=== PATIENT | male | born 1980 | race Hispanic/Latino ===

== ENCOUNTER 2017-11-13 22:00 | Observation (INO) | payer SELFPAY ==
[2017-11-13] MEDS ORDERED: NA CHLORIDE 0.9% 1,000 ML ONE (22:44)
[2017-11-13] MEDS ORDERED: PROMETHAZINE 25 MG/ML VIAL ONE (22:44)
[2017-11-13] MEDS ORDERED: FENTANYL CITR 100 MCG/2 ML ONE (22:44)
[2017-11-13 22:55] LABS: Absolute Lymphocytes (CBC) 1.9 K/uL (0.7-4.9); Absolute Monocytes 0.9 K/uL (0.1-1.3); Absolute Neutrophil 8.3 K/uL (1.8-8.0); Basophils % 0.4 % (0-1.3); Eosinophils % 0.7 % (0-4.4); Hematocrit 44.6 % (39.6-49.0); Lymphocytes % 17.1 % (15.3-44.8); MCH 32.6 pg (27.0-35.0); MCV 94.3 fL (80-100); MPV 7.4 fL (7.6-11.3); Monocytes % 8.1 % (3.3-12.3); RBC Red Blood Cell Count 4.73 M/uL (4.33-5.43)
[2017-11-13 23:12] LABS: ALT/SGPT 35 U/L (12-78); AST/SGOT 19 U/L (15-37); Albumin 4.1 g/dL (3.4-5.0); Alkaline Phosphatase 76 U/L (45-117); Amylase Level 69 U/L (25-115); BUN Blood Urea Nitrogen 10 mg/dL (7-18); Bicarbonate 32 mmol/L (21-32); Bilirubin Direct 0.1 mg/dL (0-0.2); Bilirubin Total 0.4 mg/dL (0.2-1.0); Glucose Level 113 mg/dL (74-106); Lipase 277 U/L (73-393); Potassium 3.7 mmol/L (3.5-5.1); Protein, Total 8.2 g/dL (6.4-8.2); Sodium Level 139 mmol/L (136-145)
--- NOTE | 2017-11-13 23:19 | RAD REPORT ---
EXAM DESCRIPTION: US - Abdomen Exam Limited - 11/13/2017 10:59 pm CLINICAL HISTORY: ABD PAIN COMPARISON: No comparisons FINDINGS: The gallbladder demonstrates shadowing gallstone in the region of the gallbladder neck. Th e gallbladder appears mildly distended. No pericholecystic fluid or gallbladder wall thickening. The common bile duct is normal measuring 6 mm. The liver demonstrates no findings of intrahepatic biliary dilatation. IMPRESSION: Cholelithiasis. If cholecystitis remains a clinical concern, follow-up HIDA scan would be of value.
--- NOTE | 2017-11-13 23:24 | ER ---
Nurse's Notes [facility] Name: Jose Hernandez Age: 37 yrs Sex: Male : 1980 Arrival Date: 11/13/2017 Time: 22:01 Bed 15 Private MD: Diagnosis: Cholelithiasis;Vomiting-intractable Presentation: 11/13 22:00 Presenting complaint: Patient states: he has been having sharp epigastric pain that ea radiates to back since 2 PM today, reports he has been having nausea and vomiting. Transition of care: patient was not received from another setting of care. Onset of symptoms was November 13, 2017. Risk Assessment: Do you want to hurt yourself or someone else? Patient reports no desire to harm self or others. Initial Sepsis Screen: Does the patient meet any 2 criteria? No. Patient's initial sepsis screen is negative. Does the patient have a suspected source of infection? No. Patient's initial sepsis screen is negative. Care prior to arrival: None. 22:00 Method Of Arrival: Ambulatory ea 22:00 Acuity: MACARIO 3 ea Triage Assessment: 22:00 General: Appears uncomfortable, Behavior is calm, cooperative, appropriate for age. ea Pain: Complains of pain in epigastric area Pain radiates to lumbar area Pain currently is 4 out of 10 on a pain scale. Quality of pain is described as aching, Pain began 4 hours ago. Is continuous. Neuro: Level of Consciousness is awake, alert, obeys commands, Oriented to person, place, time, situation. Cardiovascular: Heart tones S1 S2 present Patient's skin is warm and dry. Respiratory: Airway is patent Respiratory effort is even, unlabored, Respiratory pattern is regular, symmetrical. GI: Abdomen is non-distended, Bowel sounds present X 4 quads. Derm: Skin is pink, warm \T\ dry. Musculoskeletal: Circulation, motion, and sensation intact. Historical: - Allergies: 22:21 No Known Allergies; ea - Home Meds: 22:21 None [Active]; ea - PMHx: 22:21 None; ea - PSHx: 22:21 None; ea - Immunization history:: Adult Immunizations up to date. - Social history:: Smoking status: Patient/guardian denies using tobacco. - Ebola Screening: : No symptoms or risks identified at this time. Screenin:24 Abuse screen: Denies threats or abuse. Nutritional screening: No deficits noted. ea Tuberculosis screening: No symptoms or risk factors identified. Fall Risk None identified. Assessment: 22:30 General: Appears in no apparent distress. uncomfortable, Behavior is calm, cooperative, aa1 appropriate for age. Pain: Complains of pain in epigastric area Pain radiates to back Pain began suddenly, Is continuous. Neuro: Level of Consciousness is awake, alert, obeys commands, Oriented to person, place, time, situation, Moves all extremities. Full function Gait is steady. Cardiovascular: Denies chest pain, palpitations, shortness of breath. Respiratory: Airway is patent Respiratory effort is even, unlabored, Respiratory pattern is regular, symmetrical. GI: Abdomen is non-distended, Abd is soft X 4 quads Abdomen is tender to palpation in right upper quadrant and epigastric area Reports upper abdominal pain, epigastric pain, nausea, vomiting. : No signs and/or symptoms were reported regarding the genitourinary system. EENT: No signs and/or symptoms were reported regarding the EENT system. Derm: Skin is intact, is healthy with good turgor, Skin is pink, warm \T\ dry. Musculoskeletal: Circulation, motion, and sensation intact. Capillary refill < 3 seconds. 11/14 00:28 Reassessment: Patient appears in no apparent distress at this time. Patient and/or aa1 family updated on plan of care and expected duration. Pain level reassessed. Patient is alert, oriented x 3, equal unlabored respirations, skin warm/dry/pink. Awaiting bed assignment Patient states feeling better. 01:27 Reassessment: Patient appears in no apparent distress at this time. Patient is alert, aa1 oriented x 3, equal unlabored respirations, skin warm/dry/pink. Report given to Wendi on 2nd floor. Vital Signs: 11/13 22:10 BP 136 / 94; Pulse 87; Resp 18; Temp 98.6; Pulse Ox 98% on R/A; Weight 88.45 kg; Height ea 5 ft. 6 in. (167.64 cm); Pain 5/10; 11/14 00:27 BP 98 / 64; Pulse 75; Resp 18; Pulse Ox 100% ; Pain 0/10; ea 01:20 BP 114 / 86; Pulse 79; Resp 16; Pulse Ox 100% on R/A; Pain 0/10; aa1 11/13 22:10 Body Mass Index 31.47 (88.45 kg, 167.64 cm) ea ED Course: 11/13 22:01 Patient arrived in ED. am2 22:05 Arm band placed on right wrist. Patient placed in an exam room, on a stretcher, on ea pulse oximetry. 22:08 [facility] snw 22:08 Surya Smalls MD is Attending Physician. snw 22:20 Triage completed. ea 22:25 Patient has correct armband on for positive identification. Bed in low position. Call ea light in reach. 22:40 Initial lab(s) drawn, by ED staff, sent to lab. Urine collected: clean catch specimen. aa1 Inserted saline lock: 20 gauge in right antecubital area, using aseptic technique. Blood collected. by Jacey Solares RN. 22:58 Ultrasound completed. Patient tolerated well. sg3 22:58 Notified SHOE COVERER/JANELLE uriarte with us prelim. sg3 22:59 US Abdomen Limited In Process Unspecified. EDMS 23:19 Lidia Martin, DANGELO is Primary Nurse. aa1 23:23 Nick Dee MD is Hospitalizing Provider. snw 11/14 00:28 Warm blanket given. aa1 01:20 No provider procedures requiring assistance completed. Patient admitted, IV remains in aa1 place. Administered Medications: 11/13 22:50 Drug: NS 0.9% 1000 ml Route: IV; Rate: 1 bolus; Site: right antecubital; aa1 11/14 00:32 Follow up: IV Status: Completed infusion aa1 11/13 22:50 Drug: fentaNYL (PF) 50 mcg Route: IVP; Site: right antecubital; aa1 23:29 Follow up: Response: No adverse reaction; Pain is decreased aa1 22:50 Drug: Phenergan 25 mg Route: IVP; Site: right antecubital; aa1 23:29 Follow up: Response: No adverse reaction; Nausea is decreased aa1 23:29 Drug: Mefoxin 1 grams Route: IVPB; Infused Over: 30 mins; Site: right antecubital; aa1 11/14 00:00 Follow up: IV Status: Completed infusion aa1 Outcome: 11/13 23:23 Decision to Hospitalize by Provider. snw 11/14 01:27 Admitted to Med/surg accompanied by nurse, family with patient, via wheelchair, room aa1 207, with chart, Report called to Wendi Condition: stable Instructed on the need for admit, Demonstrated understanding of instructions. 01:28 Patient left the ED. aa1 Signatures: Dispatcher [employer] EDMS Lidia Martin RN RN aa1 Jessica Maldonado, SHOT BAGGER-C SHOT BAGGER-Csnw Wendy Bueno am2 Jacey Solares RN Cristina Rincon ea 3 Corrections: (The following items were deleted from the chart) 00:30 00:27 BP 98 / 64; Pulse 18bpm; Resp 75bpm; Pulse Ox 100%; ea ea
--- NOTE | 2017-11-13 23:24 | EDPHYS ---
Physician Documentation [facility] Name: Jose Hernandez Age: 37 yrs Sex: Male : 1980 Arrival Date: 11/13/2017 Time: 22:01 Bed 15 Private MD: ED Physician Surya Smalls HPI: 11/13 23:17 This 37 yrs old Male presents to ER via Ambulatory with complaints of snw Epigastric Pain, Back Pain, Vomiting. 23:17 The patient presents with abdominal pain in the epigastric area, in the right upper snw quadrant. Onset: The symptoms/episode began/occurred suddenly, today, and became worse and became persistent. The symptoms radiate to right back. Associated signs and symptoms: Pertinent positives: nausea and vomiting. The symptoms are described as sharp, steady. Severity of pain: At its worst the pain was moderate severe. The patient has not experienced similar symptoms in the past. The patient has not recently seen a physician. Historical: - Allergies: 22:21 No Known Allergies; ea - Home Meds: 22:21 None [Active]; ea - PMHx: 22:21 None; ea - PSHx: 22:21 None; ea - Immunization history:: Adult Immunizations up to date. - Social history:: Smoking status: Patient/guardian denies using tobacco. - Ebola Screening: : No symptoms or risks identified at this time. ROS: 22:30 Constitutional: Negative for fever, chills, and weight loss, Eyes: Negative for injury, snw pain, redness, and discharge, ENT: Negative for injury, pain, and discharge, Neck: Negative for injury, pain, and swelling, Cardiovascular: Negative for chest pain, palpitations, and edema, Respiratory: Negative for shortness of breath, cough, wheezing, and pleuritic chest pain, Back: Negative for injury and pain, : Negative for injury, bleeding, discharge, and swelling, MS/Extremity: Negative for injury and deformity, Skin: Negative for injury, rash, and discoloration, Neuro: Negative for headache, weakness, numbness, tingling, and seizure. 22:30 Abdomen/GI: Positive for abdominal pain, nausea and vomiting, anorexia. Exam: 22:29 Constitutional: This is a well developed, well nourished patient who is awake, alert, snw and in no acute distress. Head/Face: Normocephalic, atraumatic. Eyes: Pupils equal round and reactive to light, extra-ocular motions intact. Lids and lashes normal. Conjunctiva and sclera are non-icteric and not injected. Cornea within normal limits. Periorbital areas with no swelling, redness, or edema. ENT: Nares patent. No nasal discharge, no septal abnormalities noted. Tympanic membranes are normal and external auditory canals are clear. Oropharynx with no redness, swelling, or masses, exudates, or evidence of obstruction, uvula midline. Mucous membranes moist. Neck: Trachea midline, no thyromegaly or masses palpated, and no cervical lymphadenopathy. Supple, full range of motion without nuchal rigidity, or vertebral point tenderness. No Meningismus. Chest/axilla: Normal chest wall appearance and motion. Nontender with no deformity. No lesions are appreciated. Cardiovascular: Regular rate and rhythm with a normal S1 and S2. No gallops, murmurs, or rubs. Normal PMI, no JVD. No pulse deficits. Respiratory: Lungs have equal breath sounds bilaterally, clear to auscultation and percussion. No rales, rhonchi or wheezes noted. No increased work of breathing, no retractions or nasal flaring. Back: No spinal tenderness. No costovertebral tenderness. Full range of motion. Skin: Warm, dry with normal turgor. Normal color with no rashes, no lesions, and no evidence of cellulitis. MS/ Extremity: Pulses equal, no cyanosis. Neurovascular intact. Full, normal range of motion. Neuro: Awake and alert, GCS 15, oriented to person, place, time, and situation. Cranial nerves II-XII grossly intact. Motor strength 5/5 in all extremities. Sensory grossly intact. Cerebellar exam normal. Normal gait. 22:29 Abdomen/GI: Inspection: abdomen appears normal, Bowel sounds: normal, Palpation: moderate abdominal tenderness, in the epigastric area and right upper quadrant, Indicators: McBurney's point is not tender, Valdes's sign is negative. Vital Signs: 22:10 BP 136 / 94; Pulse 87; Resp 18; Temp 98.6; Pulse Ox 98% on R/A; Weight 88.45 kg; Height ea 5 ft. 6 in. (167.64 cm); Pain 5/10; 08 00:27 BP 98 / 64; Pulse 75; Resp 18; Pulse Ox 100% ; Pain 0/10; ea 01:20 BP 114 / 86; Pulse 79; Resp 16; Pulse Ox 100% on R/A; Pain 0/10; aa1 11/13 22:10 Body Mass Index 31.47 (88.45 kg, 167.64 cm) ea MDM: 11/13 22:08 Patient medically screened. snw 23:15 Physician consultation: Surya Smalls MD would like admission per Dr. Nick Dee MD snw discussed case with Dr. Smalls. 23:19 Data reviewed: vital signs, nurses notes. Data interpreted: Pulse oximetry: on room air snw is 98 %. Interpretation: normal. Counseling: I had a detailed discussion with the patient and/or guardian regarding: the historical points, exam findings, and any diagnostic results supporting the discharge/admit diagnosis, the presence of at least one elevated blood pressure reading (>120/80) during this emergency department visit, lab results, radiology results, the need for further work-up and treatment in the hospital. Physician consultation: Nick Dee MD was called at 23:21, was contacted at 23:21, regarding admission, to the medical/surgical unit. would like medications started, Mefoxin 1gm q 8h, NPO. 11/13 22:23 Order name: Basic Metabolic Panel; Complete Time: 23:12 snw 11/13 22:23 Order name: CBC with Diff; Complete Time: 23:02 snw 11/13 22:23 Order name: Creatinine for Radiology; Complete Time: 23:12 snw 11/13 22:23 Order name: Hepatic Function; Complete Time: 23:12 snw 11/13 22:23 Order name: Lipase; Complete Time: 23:12 snw 11/13 22:23 Order name: Urine Microscopic Only; Complete Time: 23:33 snw 11/13 22:23 Order name: US Abdomen Limited; Complete Time: 23:22 snw 11/13 22:23 Order name: Amylase Level; Complete Time: 23:12 EDMS 11/13 23:13 Order name: Urine Dipstick--Ancillary (enter results); Complete Time: 23:33 rg2 11/13 22:23 Order name: IV Saline Lock; Complete Time: 23:20 snw 11/13 22:23 Order name: Labs collected and sent; Complete Time: 23:20 snw 11/13 22:23 Order name: Urine Dipstick-Ancillary (obtain specimen); Complete Time: 23:20 snw 11/13 23:22 Order name: NPO; Complete Time: 23:28 snw Administered Medications: 22:50 Drug: NS 0.9% 1000 ml Route: IV; Rate: 1 bolus; Site: right antecubital; aa1 11/14 00:32 Follow up: IV Status: Completed infusion aa1 11/13 22:50 Drug: fentaNYL (PF) 50 mcg Route: IVP; Site: right antecubital; aa1 23:29 Follow up: Response: No adverse reaction; Pain is decreased aa1 22:50 Drug: Phenergan 25 mg Route: IVP; Site: right antecubital; aa1 23:29 Follow up: Response: No adverse reaction; Nausea is decreased aa1 23:29 Drug: Mefoxin 1 grams Route: IVPB; Infused Over: 30 mins; Site: right antecubital; aa1 11/14 00:00 Follow up: IV Status: Completed infusion aa1 Disposition: 03:36 Co-signature as Attending Physician, Surya Smalls MD. pkale Disposition: 11/13/17 23:23 Hospitalization ordered by Nick Dee for Observation. Preliminary diagnosis are Cholelithiasis, Vomiting - intractable. - Bed requested for Telemetry/MedSurg (observation). - Status is Observation. aa1 - Condition is Stable. - Problem is new. - Symptoms are unchanged. UTI on Admission? No Signatures: Dispatcher [employer] EDNE Efraín Nagy rg2 Lidia Martin RN RN aa1 Surya Smalls MD MD pkl Jessica Maldonado, PRESSURE TANK OPERATOR-C PRESSURE TANK OPERATOR-Csnw Jacey Solares RN RN caesar Corrections: (The following items were deleted from the chart) 11/13 23:23 Hospitalization Ordered by Nick Dee MD for Observation. Preliminary rg2 diagnosis is Cholelithiasis; Vomiting - intractable. Bed requested for Telemetry/MedSurg (observation). Status is Observation. Condition is Stable. Problem is new. Symptoms are unchanged. UTI on Admission? No. snw 11/14 01:28 01:07 11/13/2017 23:23 Hospitalization Ordered by Nick Dee MD for Observation. aa1 Preliminary diagnosis is Cholelithiasis; Vomiting - intractable. Bed requested for Telemetry/MedSurg (observation). Status is Observation. Condition is Stable. Problem is new. Symptoms are unchanged. UTI on Admission? No. rg2
[2017-11-13 23:28] LABS: Urine Culture Reflex Order NOT NEEDED
[2017-11-13] MEDS ORDERED: CEFOXITIN/SWI 1gm 1 GM/10 ML SYR ONE (23:28)
[2017-11-13 23:29] LABS: Urine Bacteria <20 /HPF (NONE SEEN); Urine RBC <5 /HPF (NONE SEEN)
[2017-11-13 23:29] LABS: Urine Blood TRACE (NEG); Urine Glucose NEGATIVE (NEG); Urine Protein NEGATIVE (NEG); Urine Specific Gravity 1.015 (1.005-1.030); Urine pH 8.5 (5.0-7.0)
[2017-11-14] MEDS ORDERED: ONDANSETRON 4 MG/2 ML VIAL IV PRN ×2 (01:22→16:40)
[2017-11-14] MEDS ORDERED: MORPHINE 4 MG/ML SYR IV PRN (01:22)
[2017-11-14] MEDS ORDERED: CEFOXITIN 1 GM in NA CHLORIDE 0.9% 100 ML IVPB SCH ×2 (01:22→09:00)
[2017-11-14] MEDS: D5 0.45 NS 1,000 ML IV SCH ×3 (01:54→17:08)
[2017-11-14 02:01] VITALS: BMI 31.8
[2017-11-14 05:05] LABS: Absolute Lymphocytes (CBC) 2.7 K/uL (0.7-4.9); Absolute Monocytes 0.8 K/uL (0.1-1.3); Absolute Neutrophil 5.3 K/uL (1.8-8.0); Basophils % 0.4 % (0-1.3); Eosinophils % 1.3 % (0-4.4); Hematocrit 39.7 % (39.6-49.0); Lymphocytes % 30.2 % (15.3-44.8); MCH 33.5 pg (27.0-35.0); MCV 94.2 fL (80-100); MPV 7.4 fL (7.6-11.3); Monocytes % 8.9 % (3.3-12.3); RBC Red Blood Cell Count 4.21 M/uL (4.33-5.43)
[2017-11-14 05:39] LABS: ALT/SGPT 28 U/L (12-78); AST/SGOT 14 U/L (15-37); Albumin 3.2 g/dL (3.4-5.0); Alkaline Phosphatase 52 U/L (45-117); BUN Blood Urea Nitrogen 8 mg/dL (7-18); Bicarbonate 28 mmol/L (21-32); Bilirubin Direct < 0.1 mg/dL (0-0.2); Bilirubin Total 0.5 mg/dL (0.2-1.0); Glucose Level 117 mg/dL (74-106); Lipase 159 U/L (73-393); Potassium 3.9 mmol/L (3.5-5.1); Protein, Total 6.7 g/dL (6.4-8.2); Sodium Level 142 mmol/L (136-145)
[2017-11-14] MEDS: CEFOXITIN/SWI 1gm 1 GM/10 ML SYR IV SCH ×2 (09:27→17:08)
[2017-11-14] MEDS ORDERED: MIDAZOLAM HCL 2 MG/2 ML INJ ONE (13:55)
[2017-11-14] MEDS ORDERED: LIDOCAINE 2% MPF 5 ML VIAL ONE (13:55)
[2017-11-14] MEDS ORDERED: PROPOFOL 200 MG/20 ML VIAL IV ONE (13:55)
[2017-11-14] MEDS ORDERED: FENTANYL CITR 250 MCG/5 ML ONE (13:55)
[2017-11-14] MEDS ORDERED: ROCURONIUM 50 MG/5 ML VIAL IV ONE (13:56)
[2017-11-14] MEDS ORDERED: ONDANSETRON HCL 40 MG/20 ML VIAL ONE (13:57)
[2017-11-14] MEDS ORDERED: Ringers Lactate 1,000 ML IV ONE ×2 (14:17→16:06)
[2017-11-14] MEDS ORDERED: GLYCOPYRROLATE 0.2 MG/ML SYR ONE (16:00)
[2017-11-14] MEDS ORDERED: NEOSTIGMINE 1 MG/ML -5 ML SYRINGE ONE (16:01)
[2017-11-14] MEDS: MEPERIDINE HCL 50 MG/ML AMP ONE ×3 (16:25→16:39)
--- NOTE | 2017-11-14 16:40 | P.OP ---
Preoperative diagnosis: Acute on chronic cholecystitis with cholelithiasis Postoperative diagnosis: The same Primary procedure: Laparoscopic cholecystectomy Secondary procedure: Cholangiogram Anesthesia: General Estimated blood loss: Less than 20 cc Specimen: In gallbladder and contents Findings: Chronically inflamed gallbladder Operative Technique: The patient brought the operating room and placed supine on the table. After the induction of adequate general endotracheal anesthesia, the area of the abdomen was prepped with a DuraPrep solution, and he was draped in usual aseptic manner. A subumbilical incision was made. This brought down through the skin and subcutaneous tissue. The Visiport was used into the peritoneal cavity and created pneumoperitoneum to approximately 12 mm of mercury. Under direct vision a 5 mm trocar was placed in the upper midline, and 2 5s on the right and. With the patient placed in reverse Trendelenburg and rolled to the left, we were able to visualize right upper quadrant. We could see a chronically inflamed gallbladder in the right upper quadrant. Just at the inferior edge at the horizon of the fundus of the gallbladder. There were omental adhesions to this area. These were grasped and attempts made to gently take him off the serosal surface. This was remarkably fibrous tissue that was adherent in this area almost with the consistency of cheese cloth. This completely involved the whole gallbladder. This was dissected off the serosal surface for finally able to expose Vicki's pouch. In this area there is a tremendous amount of thickening of the gallbladder wall and we could see that there was stone was visible for sleeve underneath a mucosal surface. Because the amount of adhesions and the dense did then we did an intraoperative cholangiogram to an opening made just above Vicki's pouch. This allowed us to demonstrate the cystic duct. We could see the cystic duct at its confluence with the common hepatic duct. There were no filling defects noted distally. The catheter was now removed was identified. Clips were placed across it to secure it. The gallbladder was now dissected free from the liver bed, placed into an Endo-Catch , and brought out through the umbilical trocar site. Having done this inspection of the right upper quadrant was performed. We could see that we had ensured adequate hemostasis. The umbilical scar site was approximated use and O closed with absorbable suture. The suture was tied. At the end of procedure he the room. Needle sponge count was correct. No drains were placed. Complications: None Transferred to: Recovery Room Condition: Good
[2017-11-14 16:48] VITALS: O2SAT 94
[2017-11-14] MEDS: MORPHINE 4 MG/ML SYR IV PRN ×3 (17:08→21:59)
--- NOTE | 2017-11-14 17:48 | RAD REPORT ---
EXAM DESCRIPTION: RAD - Cholangiogram Oper-Xray Or - 11/14/2017 4:33 pm FINDINGS: Fluoroscopic assisted intraoperative cholangiogram performed. A single portable C-arm view was submitted. Fluoro time was 0.1 minutes. No stricture or mass identified within the duct. Assessment is limited when only a single images avai lable. Correlation is needed with findings obtained during real-time evaluation.
[2017-11-14] MEDS: HYDROCODONE/APAP 7.5/325 MG TAB PO PRN (18:13)
[2017-11-15] MEDS: MORPHINE 4 MG/ML SYR IV PRN ×2 (00:42→04:23)
[2017-11-15] MEDS: CEFOXITIN/SWI 1gm 1 GM/10 ML SYR IV SCH ×2 (01:00→10:12)
[2017-11-15] MEDS: HYDROCODONE/APAP 7.5/325 MG TAB PO PRN ×2 (02:20→07:47)
[2017-11-15] MEDS: D5 0.45 NS 1,000 ML IV SCH ×2 (02:22→09:22)
[2017-11-15] MEDS ORDERED: TRAMADOL HCL 50 MG TAB PO ONE (12:28)
[2017-11-15 13:31] VITALS: BP 126/78; TEMP 97.7
== END 2017-11-15 14:58 | disposition home or self-care (01) ==
LOC: ER 22:00 → ERHOLD 23:30 → 2ND 11-14 01:08
PROVIDERS: ADMIT Surgery; ATTEND Surgery
PROC: BF101ZZ Fluoroscopy of Bile Ducts using Low Osmolar Contrast (ICD-10-PCS; 2017-11-14)
PROC: 0FT44ZZ Resection of Gallbladder, Percutaneous Endoscopic Approach (ICD-10-PCS; principal; 2017-11-14 12:45)
DX: K80.12 Calculus of gallbladder with acute and chronic cholecystitis without obstruction (principal)
CPT/HCPCS: 36415; 74300; 76705; 80048; 80076; 81003; 81015; 82150; 83690; 85025; 88304; 96361; 96365; 96375; 99285; G0378; J0694; J2175; J2250; J2405; J2550; J2710; J3010; J7030; Q9967